=== PATIENT | male | born 2000 | race African-American/Black ===

== ENCOUNTER 2025-01-13 12:38 | Emergency (ER) | payer BC, MEDICAID, SELFPAY ==
[2025-01-13 12:43] VITALS: BP 118/61
[2025-01-13 15:48] VITALS: BP 120/62
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
== END 2025-01-13 15:50 | disposition home or self-care (01) ==
LOC: EMR 12:38
PROVIDERS: EMERGENCY PHYSICIAN Emergency Medicine; FAMILY PHYSICIAN Internal Medicine
DX: S39.012A Strain of muscle, fascia and tendon of lower back, initial encounter (principal); R20.2 Paresthesia of skin; V73.6XXA Passenger on bus injured in collision with car, pick-up truck or van in traffic accident, initial encounter; Y92.410 Unspecified street and highway as the place of occurrence of the external cause; J45.909 Unspecified asthma, uncomplicated; F90.9 Attention-deficit hyperactivity disorder, unspecified type; F41.9 Anxiety disorder, unspecified; F31.9 Bipolar disorder, unspecified; F32.A Depression, unspecified; Z91.048 Other nonmedicinal substance allergy status
CPT/HCPCS: 99283; 72110

== ENCOUNTER 2025-08-07 21:52 | Emergency (ER) | payer BC, MEDICAID, SELFPAY ==
[2025-08-07 21:54] VITALS: BP 113/79
[2025-08-07 22:13] VITALS: BP 120/53
[2025-08-07 22:22] VITALS: BMI 21.2
[2025-08-07 22:52] LABS: Hematocrit 44.0 % (39.0-52.0); Hemoglobin 14.9 g/dL (13.0-18.0); Mean Corp Hgb Conc. 33.9 g/dL (33.0-37.0); Mean Corpuscular Volume 84.1 fL (80.0-94.0); Nucleated Red Blood Cells % 0 % (-); Platelet Count 272 10^3/uL (130-400); Red Cell Dist. Width 12.9 % (11.5-14.5)
[2025-08-07 23:00] VITALS: BP 81/52
[2025-08-07 23:04] LABS: ALT (SGPT) 23 U/L (0-50); AST (SGOT) 25 U/L (17-59); Albumin 4.9 g/dl (3.5-5.0); Alkaline Phosphatase 54 U/L (38-126); Blood Urea Nitrogen 16 mg/dl (9-20); Calcium 10.2 mg/dl (8.4-10.2); Carbon Dioxide 31 mmol/L (22-30); Chloride 101 mmol/L (98-107); Estimated Creatinine Clearance 99 ml/min; Glucose 89 mg/dl (70-99); Potassium 4.2 mmol/L (3.5-5.1); Sodium 138 mmol/L (135-145); Total Protein 7.9 g/dl (6.3-8.2); eGFR > 60.00
[2025-08-07 23:16] LABS: Troponin I < 0.012 ng/ml
--- NOTE | 2025-08-07 23:36 | ED.GENMED ---
History of Present Illness
General
Chief Complaint: Chest Pain
Source: patient
Exam Limitations: none
Time Seen by Provider: 08/07/25 22:41
Nursing documentation reviewed up to this point in time: agreed with
History of Present Illness
History of Present Illness:
25-year-old male with extensive psychiatric history, ADHD anxiety bipolar disorder depression taking multiple medications including lamotrigine, Adderall, hydroxyzine presenting to the emergency department today with concerns of intermittent
palpitations over the past week. He claims that he has been going through a lot of stress and had multiple different life events that were difficult to deal with. Denies any thoughts of harming himself or others.
Past History
Past History
ED Past Medical History: Asthma and Psychiatric
ED Past Surgical History: None
Social History
Tobacco: Non-smoker
Alcohol: None
Drug: None
Personal: Single
Living: with family
Review of Systems
Review of Systems
Allergies reviewed?: Yes
All Other Systems: ROS reviewed and negative except as documented in HPI and ROS
Phy Exam
Physical Exam
Physical Exam:
GENERAL: Alert , in no apparent distress
EYE: pupils equal and reactive
NECK: Supple, no significant adenopathy.
ENT: o/p clr, mmm.
CARDIAC: Regular rate and rhythm .
LUNGS: Clear breath sounds bilaterally, no acute respiratory distress, no wheezes/rales/rhonchi
ABDOMEN: Soft, without focal tenderness, no r/g, no cvat
NEUROLOGICAL: Alert and oriented, no focal neuro deficits
SKIN: Warm and dry, skin intact.
MUSCULOSKELETAL: No edema, well perfused.
PSYCH: Normal and appropriate interaction.
Scores
Heart Score for Chest Pain Patients
STEMI patient?: No
History: Slightly or Non-Suspicious
ECG: Normal
Age: </= 45 years
Risk Factors: No Risk Factors
Troponin: </= Normal Limit
Heart Score for Chest Pain Patients: 0
Heart Score Risk: 2.5% MACE over next 6 weeks
Course
Orders/Labs/Results
Orders:
Orders
08/07/25 21:57
EKG [Electrocardiogram (*1)] Urgent
Reason for Study: Chest Pain
EKG- Treatment ONCE
08/07/25 22:36
Complete Blood Count/With Diff Urgent
Comprehensive Metabolic Panel Urgent
Troponin I Urgent
08/07/25 23:25
0.9% Sodium Chloride 1000 ml [Nss] 1,000 ml IV BOLUS
08/07/25 23:41
D-Dimer Urgent
Abnormal Lab Results
08/07/25
22:36
Carbon Dioxide 31 H mmol/L
(22-30)
08/07/25 22:36
08/07/25 22:36
Vital Signs
Initial and Last Documented VS:
Initial Vital Signs
Temp Pulse Resp BP Pulse Ox
98.8 F 113 17 113/79 98
08/07/25 21:54 08/07/25 21:54 08/07/25 21:54 08/07/25 21:54 08/07/25 21:54
Last Documented Vital Signs
Temp Pulse Resp BP Pulse Ox
98.8 F 85 17 113/65 100
08/07/25 21:54 08/08/25 01:00 08/08/25 01:00 08/08/25 01:00 08/08/25 01:00
MDM/Problems Addressed
MDM/Problems Addressed:
25-year-old male presenting to the emergency department today with concerns of intermittent palpitations over the past week. He claims he has been going through a lot of stress recently. Thinks this could be leading to it thinks he also may be
dehydrated concern he did have some diarrhea earlier in the week. On arrival heart rate in the 110s blood pressure normal and remainder of vital signs normal. Heart rate was improving labs without specific emergent findings troponin negative EKG
sinus tachycardia. Patient feels much better after receiving fluids. No evidence of emergent pathology at this time D-dimer negative troponin normal advised for close outpatient follow-up. Return precautions given.
*Pulse Oximetry
SaO2: 98
Oxygen Mode of Delivery: Room air
Patient hypoxic: no (99)
*Critical Care Note
Total Time (30-74mins, 75-104mins- exclusive of procedures): Not Applicable
ED Attending Note
-
Portions of this chart may have been created with voice recognition software.� Occasional wrong word or��sound alike� substitutions may have occurred due to the inherent limitations of voice recognition software.
Discharge Plan
Departure
Patient Disposition: Home (Routine Discharge)
Date of Disposition: 08/08/25
Time of Disposition: 00:33
Patient with high blood pressure during this ER visit?: No
Condition: Good
Covid-19: Not Applicable
Discharge Problem:
Palpitations
Instructions: Chest Pain PCP Follow Up
Prescriptions:
No Action
trazodone 50 mg Tablet
50 mg PO HS PRN (Reason: sleep)
albuterol sulfate 90 mcg/actuation Hfa Aerosol Inhaler
2 puff INHALATION QID PRN (Reason: asthma)
hydroxyzine HCl 10 mg Tablet
10 mg PO TID PRN (Reason: anxiety)
desvenlafaxine succinate 50 mg Tablet Extended Release 24 Hr
50 mg PO DAILY
lamotrigine 50 mg Tablet,Disintegrating
50 mg PO BID
amphetamine [Adzenys XR-ODT] 15.7 mg Tablet,Disinteg Er Biphase 24h
15.7 mg PO DAILY
Trelegy Ellipta 200-62.5-25 mcg Blister With Device
1 inh INHALATION DAILY
Referrals:
Ayush Harrison MD [Family Provider, Internal Medicine]
Activity Restrictions/Additional Instructions:
You came to the emergency department today with concerns of palpitations. Here you have a reassuring assessment. Please stay hydrated and follow-up closely with your primary care doctor. Return for any worsening, new or concerning symptoms.
Interventions
Interventions:
*Risk Screen - Suicide Last Done: 08/07/25 21:56
*General Assessment Last Done: 08/07/25 21:56
*Neglect/Abuse Screening Last Done: 08/07/25 21:56
*ED- Fall Risk Assessment Last Done: 08/07/25 22:22
*ED COVID-19 Vaccine History Last Done: 08/07/25 21:56
*Nursing Disposition Last Done: 08/08/25 01:10
ED- Cardiac Assessment Last Done: 08/07/25 22:22
Discharge Date and Time
Discharge Date/Time: 08/08/25 01:10
Print Language: BELARUSIAN
[2025-08-07] MEDS: NSS 1000 IV (23:42)
[2025-08-08] VITALS: BP 99/71
[2025-08-08 00:21] LABS: D-Dimer < 0.27 ug/mlFEU (0.00-0.50)
[2025-08-08 01:00] VITALS: BP 113/65
== END 2025-08-08 01:10 | disposition home or self-care (01) ==
LOC: EMR 21:52
PROVIDERS: Physician Assistant; Student in an Organized Health Care Education/Training Program; EMERGENCY PHYSICIAN Emergency Medicine; FAMILY PHYSICIAN Internal Medicine
DX: R00.2 Palpitations (principal); R07.9 Chest pain, unspecified; J45.909 Unspecified asthma, uncomplicated
CPT/HCPCS: 99284; 96360; 80053; 84484; 85025; 85379; 93005